=== PATIENT | male | born 1985 | race Caucasian/White ===

== ENCOUNTER 2017-09-04 09:08 | Observation (INO) | payer OTHER ==
[~2017-09-04] VITALS: Ht 182.9 cm; Wt 90.7 kg
[2017-09-04] MEDS ORDERED: KETOROLAC 60MG/2ML VIAL IM ONE (09:45)
[2017-09-04] MEDS ORDERED: CYCLOBENZAPRINE 10MG TABLET PO ONE (09:45)
[2017-09-04] MEDS ORDERED: ONDANSETRON 4MG ODT PO ONE (11:30)
[2017-09-04] MEDS ORDERED: MORPHINE SULFATE 10 MG/ML CPJ IM ONE (11:30)
[2017-09-04 13:36] LABS: BASOPHILS % 0.8 % (0.0-2.0); EOSINOPHILS % 1.6 % (0.0-5.0); HEMATOCRIT. 41.8 % (42.0-52.0); HEMOGLOBIN. 14.1 g/dL (14.0-18.0); LYMPHOCYTES % 23.5 % (20.0-50.0); MEAN CORPUSCULAR HEMOGLOBIN 29.2 pg (28.0-32.0); MEAN CORPUSCULAR VOLUME 86.4 fL (80.0-94.0); MEAN PLATELET VOLUME 7.2 fl (7.4-10.4); MONOCYTES % 7.9 % (2.0-8.0); NEUTROPHILS % 66.2 % (40.0-76.0); PLATELET 246 x1000/uL (130-400); RED BLOOD CELL COUNT 4.85 mill/uL (4.7-6.1); RED CELL DISTRIBUTION WIDTH 13.6 % (11.6-14.6)
[2017-09-04 13:42] LABS: CHLORIDE 106 mEq/L (98-107)
[2017-09-04] MEDS ORDERED: ACETAMINOPHEN 650MG SUPP PR PRN (14:30)
[2017-09-04] MEDS ORDERED: ACETAMINOPHEN 325MG TABLET PO PRN (14:30)
[2017-09-04] MEDS ORDERED: DIPHENHYDRAMINE 50MG/ML VIAL IV PRN (14:30)
[2017-09-04] MEDS ORDERED: CLONIDINE 0.1MG TABLET PO PRN (14:30)
[2017-09-04] MEDS ORDERED: ONDANSETRON HCL 4MG/2ML VIAL IV PRN (14:30)
[2017-09-04] MEDS ORDERED: HYDROCODONE/ACETAMINOPHEN 5/325MG TABLET PO PRN (14:30)
[2017-09-04] MEDS ORDERED: MAGNESIUM/ALUMINUM HYDROXIDE/SIMETHICONE 30ML UDC PO PRN (14:30)
[2017-09-04] MEDS ORDERED: IPRATROPIUM/ALBUTEROL 0.5-3(2.5)MG/3ML NEB INH PRN (14:30)
[2017-09-04 15:20] VITALS: BP 111/72
[2017-09-04] MEDS ORDERED: NA PHOS,M-B/NA PHOS,DI-BA ENEMA 118ML PR PRN (16:00)
[2017-09-04] MEDS ORDERED: GLAT40SY3 SQ (17:50)
[2017-09-04 20:00] VITALS: BP 121/67
[2017-09-04] MEDS ORDERED: NON FORMULARY PATIENT HOME MED EA XX SCH ×2 (20:45→21:00)
[2017-09-04] MEDS: DEXAMETHASONE 4MG TABLET PO SCH (21:32)
[2017-09-04] MEDS: BACLOFEN 10MG TABLET PO SCH (21:36)
[2017-09-05] VITALS (7 sets, daily range): BP systolic 107–135; BP diastolic 60–82
[2017-09-05] MEDS: DEXAMETHASONE 4MG TABLET PO SCH ×2 (05:26→13:15)
[2017-09-05] MEDS: BACLOFEN 10MG TABLET PO SCH ×2 (05:26→13:16)
[2017-09-05 05:59] LABS: BASOPHILS % 0.2 % (0.0-2.0); HEMATOCRIT. 44.5 % (42.0-52.0); LYMPHOCYTES % 8.8 % (20.0-50.0); MEAN CORPUSCULAR HEMOGLOBIN 29.5 pg (28.0-32.0); MEAN CORPUSCULAR VOLUME 87.4 fL (80.0-94.0); MEAN PLATELET VOLUME 7.4 fl (7.4-10.4); MONOCYTES % 1.5 % (2.0-8.0); NEUTROPHILS % 89.5 % (40.0-76.0); PLATELET 252 x1000/uL (130-400); RED BLOOD CELL COUNT 5.09 mill/uL (4.7-6.1); RED CELL DISTRIBUTION WIDTH 13.6 % (11.6-14.6)
[2017-09-05 06:26] LABS: CHLORIDE 106 mEq/L (98-107)
[2017-09-05 06:45] LABS: T4 FREE 0.77 ng/dL (0.76-1.46)
[2017-09-05 06:46] LABS: HDL CHOLESTEROL 47 mg/dL (40-59)
[2017-09-05 06:47] LABS: LDL CHOLESTEROL 165 mg/dL (5-100)
[2017-09-05] MEDS ORDERED: ENOXAPARIN 40MG/0.4ML SYR SUBCUT SCH (09:00)
[2017-09-05] MEDS: MORPHINE SULFATE 4 MG/ML CPJ (NOT FOR IM USE) IV PRN ×2 (09:10→17:16)
[2017-09-05] MEDS ORDERED: LEVOFLOXACIN 500MG PREMIX 100 ML IV SCH (14:00)
[2017-09-05] MEDS ORDERED: IPRATROPIUM/ALBUTEROL 0.5-3(2.5)MG/3ML NEB HHN SCH (18:00)
== END 2017-09-05 19:25 | disposition home or self-care (01) ==
LOC: ER 09:08 → ENRESERV 14:09 → SUPCPDRO 14:16 → INTOOBSV 14:23 → 6EST 14:23
PROVIDERS: ADMIT Internal Medicine; ATTEND Internal Medicine
DX: M51.27 Other intervertebral disc displacement, lumbosacral region (principal); M51.36 Other intervertebral disc degeneration, lumbar region; E78.5 Hyperlipidemia, unspecified; G35 Multiple sclerosis; H54.62 Unqualified visual loss, left eye, normal vision right eye; R26.9 Unspecified abnormalities of gait and mobility; R42 Dizziness and giddiness; Z87.01 Personal history of pneumonia (recurrent)
CPT/HCPCS: 36415; 70551; 71045; 72148; 80048; 80053; 80061; 84439; 84443; 85025; 96365; 96372; 96375; 96376; 99285; G0378; J1650; J1885; J1956; J2270; J7040; Q0162; J8540